=== PATIENT | female | born 2000 | race Caucasian/White ===

== ENCOUNTER 2021-05-07 15:40 | Emergency (ER) | payer OTHER ==
[~2021-05-07] VITALS: Ht 152.4 cm; Wt 54.4 kg
== END 2021-05-07 17:56 | disposition home or self-care (01) ==
LOC: EMR PED 15:40 → ER 15:40 → EMR PED 16:52
DX: H18.822 Corneal disorder due to contact lens, left eye (principal)

== ENCOUNTER 2022-01-13 08:00 | Outpatient (CLI) | payer OTHER | END 2022-01-13 08:30 | disposition home or self-care (01) | LOC: PPH VACUNA 08:00 | PROVIDERS: ATTEND Emergency Medicine Pediatric Emergency Medicine | DX: Z23 Encounter for immunization (principal) ==